=== PATIENT | male | born 1990 | race Caucasian/White ===

== ENCOUNTER 2021-01-01 18:35 | Emergency (ER) | payer BC ==
[~2021-01-01] VITALS: Ht 188 cm; Wt 75.0 kg
[2021-01-01 18:36] VITALS: BP 101/62
--- NOTE | 2021-01-01 19:38 | REP ---
INDICATION: crush injury. COMPARISON: None. TECHNIQUE: Four views left hand 4th digit FINDINGS: No acute fracture or destructive osseous lesion. IMPRESSION: No osseous abnormality <Electronically signed by Felix Sun > 01/01/211933
== END 2021-01-01 19:36 | disposition left against medical advice (07) ==
LOC: M ED 18:35
DX: Z53.29 Procedure and treatment not carried out because of patient's decision for other reasons (principal)

== ENCOUNTER 2021-03-15 14:05 | Emergency (ER) | payer BC ==
[~2021-03-15] VITALS: Ht 188 cm; Wt 76.2 kg
[2021-03-15] MEDS ORDERED: ACET325C5 PO (14:16)
[2021-03-15] MEDS ORDERED: NS 1,000 ML IV ONE (14:40)
[2021-03-15] MEDS ORDERED: ONDANSETRON 4MG/2ML VIAL IV ONE (14:40)
[2021-03-15] MEDS ORDERED: PANTOPRAZOLE 40MG VIAL (C9113 PER 1) IV ONE (14:45)
[2021-03-15] MEDS ORDERED: ACETAMINOPHEN TAB 650MG DOSE (2X325MG) PO ONE (15:00)
[2021-03-15 15:20] LABS: BASO % 0.3 % (0.0-1.0); HEMATOCRIT 45.2 % (42.0-52.0); HEMOGLOBIN 15.6 g/dl (13.5-17.5); LYMPH # 0.4 10^3/uL (1.5-5.0); LYMPH % 3.4 % (24.0-44.0); MEAN CORPUSCULAR HEMOGLOBIN 30.6 pg (27.0-33.0); MEAN CORPUSCULAR HGB CONC 34.5 g/dl (32.0-36.5); MEAN CORPUSCULAR VOLUME 88.8 fl (80.0-96.0); MONO # 1.1 10^3/uL (0.0-0.8); MONO % 10.6 % (2.0-8.0); NEUTROPHILS # 8.9 10^3/uL (1.5-8.5); NEUTROPHILS % 85.3 % (36.0-66.0); PLATELET COUNT, AUTOMATED 216 10^3/uL (150-450); RED BLOOD COUNT 5.09 10^6/uL (4.30-6.10); WHITE BLOOD COUNT 10.5 10^3/uL (4.0-10.0)
[2021-03-15 15:38] LABS: ALBUMIN 4.2 GM/DL (3.2-5.2); ALT/SGPT 24 U/L (12-78); BILIRUBIN,DIRECT 0.3 MG/DL (0.0-0.2); BILIRUBIN,TOTAL 0.8 MG/DL (0.2-1.0); BLOOD UREA NITROGEN 14 MG/DL (7-18); CALCIUM LEVEL 9.4 MG/DL (8.5-10.1); CARBON DIOXIDE LEVEL 26 MEQ/L (21-32); CHLORIDE LEVEL 105 MEQ/L (98-107); CREATININE FOR GFR 1.05 MG/DL (0.70-1.30); GLOMERULAR FILTRATION RATE > 60.0 (>60); GLUCOSE, FASTING 108 MG/DL (70-100); LIPASE 52 U/L (73-393); POTASSIUM SERUM 3.4 MEQ/L (3.5-5.1); SODIUM LEVEL 138 MEQ/L (136-145); TOTAL PROTEIN 7.4 GM/DL (6.4-8.2)
[2021-03-15 15:48] LABS: RSV AMPLIFICATION NEGATIVE (NEGATIVE)
[2021-03-15] MEDS ORDERED: ONDA4TAB6 PO (16:09)
[2021-03-15 16:30] VITALS: BP 126/59
== END 2021-03-15 16:34 | disposition home or self-care (01) ==
LOC: M ED 14:05
DX: R05.9 Cough, unspecified (principal); U07.1 COVID-19
CPT/HCPCS: 80048; 80076; 83690; 85025; 87631; 96361; 96374; 96375; 99284; C9113; J2405